=== PATIENT | male | born 1985 | race Caucasian/White ===

== ENCOUNTER 2021-02-18 11:35 | Emergency (ER) | payer OTHER ==
[~2021-02-18] VITALS: Ht 180.3 cm; Wt 98.0 kg
== END 2021-02-18 20:07 | disposition home or self-care (01) ==
LOC: FER 11:35
DX: M25.561 Pain in right knee (principal); M79.642 Pain in left hand; F17.210 Nicotine dependence, cigarettes, uncomplicated
CPT/HCPCS: 73130; 73560